=== PATIENT | female | born 1940 | race Caucasian/White ===

== ENCOUNTER 2022-09-27 11:43 | Emergency (ER) | payer MEDICARE, OTHER ==
[~2022-09-27] VITALS: Ht 170.2 cm; Wt 79.0 kg
--- NOTE | 2022-09-27 12:17 | NUR ---
PLANT TECHNICIAN/CONTROL ROOM OPERATOR AT BEDSIDE.
[2022-09-27 12:45] LABS: BASOPHILS % (AUTO) 0.6 % (0-1); EOSINOPHILS # (AUTO) 0.2 X10'3 (0-0.9); EOSINOPHILS % (AUTO) 3.3 % (0-6); HEMATOCRIT 38.1 % (35.0-45.0); HEMOGLOBIN 12.5 g/dl (12.0-16.0); LYMPHOCYTES # (AUTO) 1.6 X10'3 (1.1-4.8); LYMPHOCYTES % (AUTO) 20.8 % (21-51); MEAN CORPUSCULAR HEMOGLOBIN 29.5 PG (27.0-31.0); MEAN CORPUSCULAR HGB CONC 32.7 g/dL (33.0-36.5); MEAN CORPUSCULAR VOLUME 90.2 FL (78-98); MEAN PLATELET VOLUME 9.2 FL (7.4-10.4); MONOCYTES # (AUTO) 0.8 X10'3 (0-0.9); MONOCYTES % (AUTO) 11.2 % (2-12); NEUTROPHILS # (AUTO) 4.8 X10'3 (1.8-7.7); NEUTROPHILS % (AUTO) 64.1 % (42-75); PLATELET COUNT 247 X10'3 (140-440); RED BLOOD COUNT 4.22 X10'6 (4.20-5.60); RED CELL DISTRIBUTION WIDTH 14.1 % (11.5-14.5); WHITE BLOOD COUNT 7.5 X10'3 (4.5-11.0)
--- NOTE | 2022-09-27 12:45 | NUR ---
pt sleeping in bed quietly ,will cont to monitor.
[2022-09-27 12:46] LABS: ALANINE AMINOTRANSFERASE 19 U/L (12-78); ALBUMIN 3.5 G/DL (3.4-5.0); ALBUMIN/GLOBULIN RATIO 1.1 (1.1-1.5); ALKALINE PHOSPHATASE 110 IU/L (46-116); ANION GAP 4 (8-16); ASPARTATE AMINO TRANSFERASE 13 U/L (10-37); BILIRUBIN,TOTAL 0.4 MG/DL (0.1-1.0); BLOOD UREA NITROGEN 20 MG/DL (7-18); BUN/CREATININE RATIO 24.1 (10.0-20.0); CALCIUM 9.3 MG/DL (8.5-10.1); CHLORIDE 105 MMOL/L (99-107); CREATININE 0.83 MG/DL (0.40-0.90); GLUCOSE 96 MG/DL (70-104); SODIUM 140 MMOL/L (135-145); TOTAL PROTEIN 6.6 G/DL (6.4-8.2); eGFR 66 ML/MIN
--- NOTE | 2022-09-27 12:50 | NUR ---
PER AYESHA HINOJOSA DO STARIGHT CATH FOR URINE ,AWARE OF PROLAPSE UTERUS , PER [employer]GE WHO SPOKE TO PT DAUGHTER WHO TOLD THAT PT HAS HX OF UTERUS PROLAPSE.
[2022-09-27 14:02] LABS: CLARITY,URINE CLOUDY (Clear); COLOR,URINE YELLOW (Yellow); GLUCOSE, URINE NEGATIVE (Neg); KETONES,URINE NEGATIVE (Neg); LEUKOCYTE ESTERASE ,URINE NEGATIVE (Neg); NITRITES, URINE NEGATIVE (Neg); OCCULT BLOOD,URINE NEGATIVE (Neg); PROTEIN,URINE NEGATIVE (Neg); UROBILINOGEN,URINE 0.2 E.U/dL (0.2-1.0)
[2022-09-27 14:09] LABS: UA COLLECTION TYPE STRAIGHT CATH
[2022-09-27 14:11] LABS: SQUAMOUS EPITHELIAL CELL,UR FEW /LPF (FEW)
[2022-09-27 14:16] LABS: RBC,URINE 0-2 /HPF (0-2); TRANSITIONAL EPI CELLS,URINE FEW /HPF
[2022-09-27 14:20] LABS: BACTERIA,URINE 4+ /HPF (Neg)
[2022-09-27 14:23] LABS: WBC,URINE 0-4 /HPF (0-4)
--- NOTE | 2022-09-27 14:38 | NUR ---
SPOKE TO SEPTEMBER {PT'S DAUGHTER} FOR D/C TRANSFORTATION BACK TO [facility] , PER DAUGHTER SHE IS GOING TO CALL HER SON TO COME BRAZING MACHINE OPERATOR HELPER THE PT.
[2022-09-27 15:28] VITALS: BP 133/74
== END 2022-09-27 15:30 | disposition home or self-care (01) ==
LOC: ER 11:44
DX: R07.89 Other chest pain (principal); I10 Essential (primary) hypertension
CPT/HCPCS: 36415; 71045; 80053; 81001; 83880; 84484; 85025; 85610; 87077; 87088; 87186; 93005; 99285